=== PATIENT | male | born 1970 | race Caucasian/White ===

== ENCOUNTER 2017-07-22 23:41 | Emergency (ER) | payer MEDICAID ==
[~2017-07-22] VITALS: Ht 170.2 cm; Wt 88.5 kg
[2017-07-22 23:56] VITALS: BP 138/88
== END 2017-07-23 01:12 | disposition home or self-care (01) ==
LOC: ED 23:59
DX: Z00.00 Encounter for general adult medical examination without abnormal findings (principal); B86 Scabies
CPT/HCPCS: 99283

== ENCOUNTER 2018-05-13 13:38 | Emergency (ER) | payer MEDICAID ==
[~2018-05-13] VITALS: Ht 172.7 cm; Wt 92.5 kg
[2018-05-13 14:20] VITALS: BP 133/92
[2018-05-13] MEDS ORDERED: BICILLIN-LA 2,400,000 UNITS/4 ML IM ONE (16:30)
== END 2018-05-13 16:40 | disposition home or self-care (01) ==
LOC: ED 16:34
DX: Z20.2 Contact with and (suspected) exposure to infections with a predominantly sexual mode of transmission (principal)
CPT/HCPCS: 36415; 86592; 87491; 87591; 96372; 99283; J0561